=== PATIENT | male | born 1970 | race Caucasian/White ===

== ENCOUNTER 2016-10-20 21:13 | Observation (INO) | payer BC ==
--- NOTE | ~2016-10-20 | HP ---
Unit #: [id number] #: [id number] Patient: LUIS CASTRO [id number] [address] [place], [place] [address] [id number] MR#: [id number] NAME: LUIS CASTRO. ROOM: 78286 Age: 46 Sex: M Admission Date: 10/21/2016 : 1970 Attending Physician: Domingo Calvo M.D. Primary Care Physician: Peter Velez M.D. HISTORY AND PHYSICAL REASON FOR ADMISSION Foreign body in the esophagus. 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 Apparently, was eating some meat prior to coming to the emergency room and found it to be stuck in the esophagus. He was not able to swallow or drink anything. No chest pain, no abdominal pain, no fever, no chills. Review of other systems was negative. PAST HISTORY Significant for: 1. GERD. 2. Morbid obesity. ALLERGIES Penicillin. MEDICATIONS Medications at home include: 1. Nexium. 2. Selfemra. 3. [place]. SOCIAL HISTORY Nonsmoker. Social alcohol use. REVIEW OF SYSTEMS As above. PHYSICAL EXAMINATION VITAL SIGNS: Stable. Temperature 98.7, pulse 83, respirations 22, blood pressure 160/95. HEENT: Pupils equal and reactive. Sclera anicteric. Oral mucosa moist. NECK: No JVD, no lymphadenopathy. CHEST: Clear to auscultation bilaterally. CARDIOVASCULAR SYSTEM: Regular rate and rhythm. No murmurs. ABDOMEN: Soft, nontender. He is morbidly obese. EXTREMITIES: Without clubbing, cyanosis or edema. NEUROLOGICAL: Intact. ASSESSMENT AND PLAN 1. Patient with acute dysphagia after eating meat, possible meat Unit #: [id number] #: [id number] Patient: LUIS CASTRO impaction of the esophagus. I will keep him on Protonix for now and plan on doing an EGD for further evaluation. Further recommendations to follow. Risks and benefits of the procedure were discussed with the patient. 2. Patient with history of Yang's esophagus. Has not followed up in the last several years. Apparently has been taking PPIs regularly with PCP. Was advised to have a followup EGD for Yang esophagus, biopsies and (1) . Dictated by Luis Alfredo Ochoa/kannan TD: 10/21/2016 08:34 JOB #: [id number] HISTORY AND PHYSICAL Page 1 of 1 X Domingo Calvo MD X HISTORY AND PHYSICAL
--- NOTE | ~2016-10-20 | OR ---
Unit #: [id number] #: [id number] Patient: DEEPA LEE [id number] [address] [place], [place] [address] [id number] MR#: [id number] NAME: DEEPA LEE. ROOM: 41584 Date of Procedure: 10/21/2016 Admission Date: 10/21/2016 Surgeon: Domingo Calvo M.D. : 1970 Attending Physician: Domingo Calvo M.D. Primary Care Physician: Peter Velez M.D. OPERATIVE REPORT PROCEDURE PERFORMED Esophagogastroduodenoscopy to descending duodenum. INDICATIONS The patient presented after eating some meat with possible esophageal meat impaction. MEDICATIONS Monitored anesthesia. POSTOPERATIVE FINDINGS 1. No meat impaction was seen, most likely has passed the food spontaneously. 2. There was a tight esophageal stricture, which was dilated with the shaft of the scope at 25 cm at the upper level of the Yang's esophagus. 3. Yang esophagus starting at [address] to the 37 candido. 4. Large hiatal hernia. 5. Normal stomach. 6. Normal duodenum and distal duodenum. PLAN The patient to a stay on clear liquids for 48 hours, stay with twice a day PPIs, repeat upper endoscopy for biopsies for dysplasia after 6 weeks or so. DESCRIPTION OF PROCEDURE The patient was explained of the procedure, risks, and benefits along with risks and benefits of anesthesia. He was brought to the endoscopy room. Propofol anesthesia was given. Bite block was placed. The scope was passed down the mouth and esophagus. At 25 cm, there was a tight esophageal stricture. After a little bit of manipulation, I was able to pass the scope down all the way further into distal esophagus, stomach, duodenum and distal duodenum. Exam was completed. Findings as described. Minimal tear seen at the level of the stricture as I was withdrawing the scope. Gently, the scope was pulled out. He tolerated it well. No major complication seen. Dictated by... Luis Alfredo Ochoa/jamshid Unit #: [id number] #: [id number] Patient: DEEPA LEE TD: 10/21/2016 08:41 JOB #: [id number] CC: Luis Alfredo Ochoa M.D. OPERATIVE REPORT Page 1 of 1 X Domingo Calvo MD PROCEDURE OPERATIVE NOTE
[~2016-10-20 21:13] MED LIST: FAMOTIDINE PO; MORINGA PO; NEXIUM PO; SELFEMRA20 MG PO
== END 2016-10-21 09:21 | disposition home or self-care (01) | DRG 395 ==
LOC: CED 21:13 → CEDOF 23:00
PROC: 0DJ08ZZ Inspection of Upper Intestinal Tract, Via Natural or Artificial Opening Endoscopic (ICD-10-PCS; principal; 2016-10-20)
DX: T18.128A Food in esophagus causing other injury, initial encounter (principal); X58.XXXA Exposure to other specified factors, initial encounter; Y92.9 Unspecified place or not applicable; K22.2 Esophageal obstruction; K22.70 Barrett's esophagus without dysplasia; K44.9 Diaphragmatic hernia without obstruction or gangrene; K21.9 Gastro-esophageal reflux disease without esophagitis; Z79.899 Other long term (current) drug therapy; E66.01 Morbid (severe) obesity due to excess calories; Z88.0 Allergy status to penicillin
CPT/HCPCS: 96361; 96374; 96375; 99285; C9113; G0378; J1610; J1956; J2060; J2405; J2765